=== PATIENT | female | born 1985 | race Caucasian/White ===

== ENCOUNTER 2020-04-21 16:34 | Emergency (ER) | payer OTHER ==
[~2020-04-21] VITALS: Ht 160 cm; Wt 52.2 kg
[2020-04-21 16:42] VITALS: Ht 160 cm; Wt 52.2 kg
[2020-04-21 17:10] LABS: BASOPHIL % 0.6 % (0.2-1.3); PLATELET COUNT 249 x10^3mcL (179-408); RED CELL DISTRIBUTION WIDTH 12.5 % (12.3-17.7)
[2020-04-21 18:53] LABS: microscopic required? NO
[2020-04-21 19:08] LABS: UA SPECIFIC GRAVITY 1.015 (1.005-1.035); urine erythrocyte NEGATIVE (NEGATIVE)
[2020-04-21 21:02] VITALS: BP 122/80
== END 2020-04-21 21:10 | disposition home or self-care (01) ==
LOC: ED 16:34
PROVIDERS: Emergency Medicine
DX: O20.0 Threatened abortion (principal); Z3A.13 13 weeks gestation of pregnancy
CPT/HCPCS: C1758; J1460